=== PATIENT | female | born 1960 | race Asian ===

== ENCOUNTER 2016-10-17 08:50 | Outpatient (CLI) | payer BC ==
--- NOTE | 2016-10-18 10:16 | Mammography Report ---
BILATERAL DIGITAL SCREENING MAMMOGRAM with CAD: 10/17/16 08:50:00 CLINICAL: Routine screening. COMPARISON:10/28/14 FINDINGS: The breasts are almost entirely fatty with the right breast smaller than the left. No mass, architectural distortion or suspicious calcifications. IMPRESSION: No mammographic evidence of malignancy. BI-RADS CATEGORY: 2 - - Benign RECOMMENDATION: Routine mammographic screening in one year. COMMENT: Patient follow-up letters are generated by our [employer] application.
== END 2016-10-17 08:51 | disposition home or self-care (01) ==
LOC: SPVWC 08:50
PROVIDERS: ATTEND Family Medicine
DX: Z12.31 Encounter for screening mammogram for malignant neoplasm of breast (principal)
CPT/HCPCS: 77067; G0202